=== PATIENT | female | born 1995 | race Hispanic/Latino ===

== ENCOUNTER 2017-11-18 20:21 | Inpatient (IN) | payer MEDICAID ==
[~2017-11-18] VITALS: Ht 157.5 cm; Wt 104.3 kg
[2017-11-18] MEDS: OXYTOCIN-LR 20 UNITS/1000 ML 1,000 ML IV SCH (19:00)
[2017-11-18 21:00] LABS: APPEARANCE,URINE SL CLOUDY (CLEAR); BILIRUBIN,URINE NEGATIVE (NEGATIVE); COLOR,URINE YELLOW (YELLOW); GLUCOSE, URINE (UA) NEGATIVE (NEGATIVE); KETONES,URINE NEGATIVE (NEGATIVE); LEUKOCYTE ESTERASE ,URINE LARGE (NEGATIVE); NITRATE,URINE NEGATIVE (NEGATIVE); OCCULT BLOOD,URINE NEGATIVE (NEGATIVE); PH,URINE 7.5 (5.0-8.0); PROTEIN,URINE NEGATIVE (NEGATIVE); UROBILINOGEN,URINE 0.2 mg/dL (0.2-1.0)
[2017-11-18 21:06] LABS: RBC,URINE 0-1 /HPF (0-1)
[2017-11-18 21:07] LABS: BACTERIA,URINE Few /HPF (None Seen); SQUAMOUS EPITHELIAL CELL,UR Few /LPF (0-2)
[2017-11-18] MEDS ORDERED: AMPICILLIN 2GM+NS 100ML 100 ML IV SCH (21:30)
[2017-11-18] MEDS: LACTATED RINGERS 1000ML 1,000 ML IV PRN (21:46)
[2017-11-18 22:17] LABS: HEMATOCRIT 36.8 % (36-48); MEAN CORPUSCULAR VOLUME 82.3 fL (79-99); NUCLEATED RED BLOOD CELLS 0.1 % (0.0-0.19); PLATELET COUNT (AUTO) 288 K/uL (130-400); RED BLOOD CELL COUNT(AUTO) 4.47 MIL/uL (4.00-5.50); RED CELL DISTRIBUTION WIDTH 15.1 % (11.0-15.5); WHITE BLOOD COUNT (AUTO) 10.9 K/uL (4.8-10.8)
[2017-11-19] MEDS: AMPICILLIN 1GM+NS 50ML 50 ML IV SCH ×4 (01:56→13:29)
[2017-11-19] MEDS: LACTATED RINGERS 1000ML 1,000 ML IV PRN ×2 (05:53→14:13)
[2017-11-19] MEDS ORDERED: OXYTOCIN 10 USP UNITS/ML 20 UNIT in LACTATED RINGERS 1000ML 1,000 ML IV SCH (07:15)
[2017-11-19] MEDS ORDERED: OXYTOCIN 10 USP UNITS/ML ONE (07:27)
[2017-11-19] MEDS ORDERED: LACTATED RINGERS 1000ML 1,000 ML IV ONE ×2 (07:27→18:54)
[2017-11-19] MEDS ORDERED: MEPERIDINE-PF 50 MG/ML SYG SIVP SCH (11:45)
[2017-11-19] MEDS ORDERED: PROMETHAZINE HCL 25 MG/ML 1ML AMPULE IM SCH (11:45)
[2017-11-19] MEDS ORDERED: LACTATED RINGERS 500 ML 500 ML IV PRN (13:15)
[2017-11-19] MEDS ORDERED: NALOXONE HCL 0.4 MG/1 ML ML IV PRN (13:15)
[2017-11-19] MEDS ORDERED: EPHEDRINE SULFATE 50 MG/ML AMPULE IVP PRN ×2 (13:15→20:30)
[2017-11-19] MEDS ORDERED: FENTANYL CITRATE PF 50 MCG/1 ML 2ML VIAL ONE (16:18)
[2017-11-19] MEDS ORDERED: DURAMORPH PF1 MG/ML 10ML AMP IV ONE (16:36)
[2017-11-19] MEDS ORDERED: SODIUM CHLORIDE 0.9% 10 ML VIAL IVP PRN (18:30)
[2017-11-19] MEDS ORDERED: DEXTROSE 5 %-0.45 % NACL 1,000 ML IV PRN (18:30)
[2017-11-19] MEDS ORDERED: CALDOLOR 800MG+NS 250ML 250 ML IV ONE (18:54)
[2017-11-19] MEDS: CALDOLOR 800MG+NS 250ML 250 ML IV SCH (19:00)
[2017-11-19] MEDS: MEPERIDINE-PF 75 MG/ML SYG IM PRN (20:27)
[2017-11-19] MEDS: PROMETHAZINE HCL 25 MG/ML 1ML AMPULE IM PRN (20:27)
[2017-11-19] MEDS ORDERED: HYDROCODONE/ACETAMINOPHEN 5/325 MG TAB PO PRN ×2 (20:30)
[2017-11-19] MEDS ORDERED: METOCLOPRAMIDE 10 MG/2 ML VIAL IVP PRN (20:30)
[2017-11-19] MEDS ORDERED: DiphenhydrAMINE HCL 50 MG/ML VIAL IVP PRN (20:30)
[2017-11-19] MEDS ORDERED: MORPHINE SULFATE 2 MG/ML 1ML SYG IVP PRN (20:30)
[2017-11-19] MEDS ORDERED: NALOXONE HCL 0.4 MG/1 ML ML IVP PRN (20:30)
[2017-11-19] MEDS ORDERED: ONDANSETRON HCL 4 MG/2 ML VIAL IVP PRN ×2 (20:30)
[2017-11-19] MEDS ORDERED: ONDANSETRON HCL 4 MG/2 ML 8 MG in SODIUM CHLORIDE 0.9% 50 ML IVP NR (20:30)
[2017-11-19] MEDS ORDERED: PROMETHAZINE HCL 25 MG/ML 1ML AMPULE IM PRN (20:30)
[2017-11-19 21:05] VITALS: BP 122/56
[2017-11-19] MEDS ORDERED: PREN1TAB89 PO (21:16)
[2017-11-19 23:54] VITALS: BP 93/46
[2017-11-20] MEDS ORDERED: OXYTOCIN 10 USP UNITS/ML ONE (01:49)
[2017-11-20] MEDS: OXYTOCIN-LR 20 UNITS/1000 ML 1,000 ML IV SCH (01:51)
[2017-11-20] MEDS: MEPERIDINE-PF 75 MG/ML SYG IM PRN (01:57)
[2017-11-20] MEDS: PROMETHAZINE HCL 25 MG/ML 1ML AMPULE IM PRN (01:57)
[2017-11-20 02:46] VITALS: BP 102/57
[2017-11-20] MEDS: CALDOLOR 800MG+NS 250ML 250 ML IV SCH ×2 (03:02→10:58)
[2017-11-20 04:09] LABS: HEMATOCRIT 35.2 % (36-48); MEAN CORPUSCULAR HEMOGLOBIN 28.5 pg (27.0-33.0); MEAN CORPUSCULAR HGB CONC 34.4 g/dL (32.0-36.0); MEAN CORPUSCULAR VOLUME 82.9 fL (79-99); PLATELET COUNT (AUTO) 263 K/uL (130-400); RED BLOOD CELL COUNT(AUTO) 4.25 MIL/uL (4.00-5.50); WHITE BLOOD COUNT (AUTO) 10.7 K/uL (4.8-10.8)
[2017-11-20 07:31] VITALS: BP 107/61
[2017-11-20] MEDS ORDERED: DIPH,PERTUSS(ACELL),TET VAC/PF 0.5 ML VIAL IM SCH (08:30)
[2017-11-20] MEDS ORDERED: BISACODYL 10 MG SUPP.RECT RC PRN (08:30)
[2017-11-20] MEDS ORDERED: LANOLIN 30GM OINTMENT TP PRN (08:30)
[2017-11-20] MEDS ORDERED: ACETAMINOPHEN EXTRA STRENGTH 500 MG TABLET PO PRN (08:30)
[2017-11-20] MEDS ORDERED: IBUPROFEN 800 MG TAB PO SCH (08:30)
[2017-11-20] MEDS: SIMETHICONE 80 MG TAB.CHEW PO PRN ×2 (10:01→21:23)
[2017-11-20] MEDS: DOCUSATE SODIUM 100 MG CAP PO SCH ×2 (10:01→21:23)
[2017-11-20 10:22] LABS: HEPATITIS Bs ANTIGEN SCREEN P Negative (Negative)
[2017-11-20 11:32] VITALS: BP 118/71
[2017-11-20 16:11] VITALS: BP 145/70
[2017-11-20] MEDS: ACETAMINOPHEN-CODEINE 300/30MG TAB PO PRN ×3 (16:13→23:47)
[2017-11-20 19:48] VITALS: BP 111/61
[2017-11-20 23:27] VITALS: BP 123/61
[2017-11-21] MEDS ORDERED: IBUPROFEN 800 MG TAB PO PRN (00:30)
[2017-11-21 03:08] VITALS: BP 126/56
[2017-11-21 07:57] VITALS: BP 107/63
[2017-11-21] MEDS: DOCUSATE SODIUM 100 MG CAP PO SCH (09:48)
[2017-11-21] MEDS: ACETAMINOPHEN-CODEINE 300/30MG TAB PO PRN (09:48)
[2017-11-21] MEDS: SIMETHICONE 80 MG TAB.CHEW PO PRN (09:48)
[2017-11-21 11:37] VITALS: BP 100/56
== END 2017-11-21 13:55 | disposition home or self-care (01) | DRG 540 ==
LOC: EDH 20:21 → LDH 20:29 → OBSVTOIN 20:31 → LDH 20:31 → WSH 11-19 20:55
PROVIDERS: ADMIT Obstetrics & Gynecology; ATTEND Obstetrics & Gynecology
PROC: 10D00Z1 Extraction of Products of Conception, Low, Open Approach (ICD-10-PCS; 2017-11-19)
PROC: 3E0234Z Introduction of Serum, Toxoid and Vaccine into Muscle, Percutaneous Approach (ICD-10-PCS; 2017-11-19)
PROC: 0UB70ZZ Excision of Bilateral Fallopian Tubes, Open Approach (ICD-10-PCS; principal; 2017-11-19 16:10)
DX: O69.1XX0 Labor and delivery complicated by cord around neck, with compression, not applicable or unspecified (principal); O62.2 Other uterine inertia; O76 Abnormality in fetal heart rate and rhythm complicating labor and delivery; O99.824 Streptococcus B carrier state complicating childbirth; Z30.2 Encounter for sterilization; Z37.0 Single live birth; Z23 Encounter for immunization; Z3A.38 38 weeks gestation of pregnancy
CPT/HCPCS: 36415; 59510; 81001; 85027; 86592; 86850; 86900; 86901; 87340; 88305; 90715; A4344; A4450; A4606; J0290; J1741; J2175; J2274; J2550; J2590; J3010; J7120

== ENCOUNTER 2019-09-10 00:34 | Emergency (ER) | payer MEDICAID, OTHER ==
[~2019-09-10 00:34] MED LIST: PREN1TAB89 PO
== END 2019-09-10 01:02 ==
LOC: EDH 00:34
DX: S60.512A Abrasion of left hand, initial encounter (principal); S60.511A Abrasion of right hand, initial encounter; F41.9 Anxiety disorder, unspecified; F32.9 Major depressive disorder, single episode, unspecified; G89.29 Other chronic pain; M54.9 Dorsalgia, unspecified; Z88.2 Allergy status to sulfonamides; X58.XXXA Exposure to other specified factors, initial encounter; Y93.89 Activity, other specified; Y92.148 Other place in prison as the place of occurrence of the external cause; Y99.8 Other external cause status

== ENCOUNTER 2020-03-20 03:58 | Emergency (ER) | payer OTHER | END 2020-03-20 04:03 | LOC: EDH 03:58 | DX: Z02.83 Encounter for blood-alcohol and blood-drug test (principal); F41.9 Anxiety disorder, unspecified; G89.29 Other chronic pain; M54.9 Dorsalgia, unspecified; F32.9 Major depressive disorder, single episode, unspecified; Z88.2 Allergy status to sulfonamides | CPT/HCPCS: 36415 ==